=== PATIENT | female | born 1975 | race Caucasian/White ===

== ENCOUNTER 2016-04-12 17:48 | Emergency (ER) | payer BC ==
[~2016-04-12] VITALS: Wt 110.0 kg
[~2016-04-12 17:48] MED LIST: CEPH-443 PO; CLOT30CR24 TOP; FLUC150T17 PO; FLUC150T41 PO; ULT50 PO
[2016-04-12] MEDS ORDERED: LIDOCAINE 1% (MDV) 20 ML INJ SC ONE (19:00)
[2016-04-12] MEDS ORDERED: DIPHTH/TET/ACEL PERTUSS (ADULT) 0.5 ML VIAL IM* ONE (19:00)
[2016-04-12 19:19] LABS: URINE BLOOD (Dip) POC Negative (NEGATIVE)
[2016-04-12] MEDS ORDERED: INSULIN LISPRO 100 UNIT/ML VIAL SC STA (19:25)
[2016-04-12] MEDS ORDERED: FLUC150T17 PO (19:42)
[2016-04-12] MEDS ORDERED: DOXY-220 PO (19:42)
[2016-04-12] MEDS ORDERED: IBUP-1542 PO (19:42)
--- NOTE | 2016-04-12 19:46 | ERD ---
ER Documentation Chief Complaint Date/Time DATE: 04/12/16 TIME: 19:43 Chief Complaint right index finger and vaginal itching for the past few days. HPI This 40-year-old female presents with multiple complaints. She has a splinter in her right in the street from yesterday while gardening. She has some slight pain and redness. She denies any restricted range of motion weakness. Tetanus up-to-date. She also complains of some whitish discharge and itching in her vaginal area. She has a history of yeast infection as she has a history of diabetes and it feels the same as previous. She denies abdominal pain, fevers, vomiting. She does have some slight dysuria but she is uncertain whether it is from the irritation of the vaginal area ROS All systems reviewed and are negative except as per history of present illness. Medications Home Meds Active Scripts Ibuprofen* (Ibuprofen*) 600 Mg Tablet, 600 MG PO Q6, #15 TAB Prov:BRIJESH MILTON MD 04/12/16 Doxycycline Monohydrate* (Doxycycline Monohydrate*) 100 Mg Tablet, 100 MG PO BID for 10 Days, TAB Prov:BRIJESH MILTON MD 04/12/16 Fluconazole* (Diflucan*) 150 Mg Tablet, 150 MG PO ONCE, #1 TAB Prov:BRIJESH MILTON MD 04/12/16 Fluconazole* (Fluconazole*) 150 Mg Tablet, 150 MG PO ONCE, #1 TAB Prov:MARIANA MCPHERSON PA-C 12/30/14 Tramadol HCl (Tramadol HCl) 50 Mg Tab, 50 MG PO Q4 Y for PAIN, #20 TAB Prov:MARIANA MCPHERSON PA-C 12/30/14 Clotrimazole* (Clotrimazole* AF) 1% - 30 Gm Cream.gm., 1 APPLIC TOP BID for 7 Days, TUB apply to belly button only Prov:MARIANA MCPHERSON PA-C 11/04/14 Cephalexin* (Keflex*) 500 Mg Capsule, 500 MG PO QID for 7 Days, CAP Prov:MARIANA MCPHERSON PA-C 11/04/14 Fluconazole* (Diflucan*) 150 Mg Tablet, 150 MG PO ONCE, #1 TAB Prov:MARIANA MCPHERSON PA-C 11/04/14 Allergies Allergies: Coded Allergies: No Known Allergy (Unverified , 04/24/13) PMhx/Soc History of Surgery: Yes (tonsilectomy) Anesthesia Reaction: No Hx Neurological Disorder: No Hx Respiratory Disorders: No Hx Cardiac Disorders: No Hx Psychiatric Problems: No Hx Miscellaneous Medical Probl: Yes (DM. TYPE 2- noncompliant) Hx Alcohol Use: No Hx Substance Use: No Hx Tobacco Use: Yes Smoking Status: Current some day smoker Physical Exam Vitals Vital Signs Date Time Temp Pulse Resp B/P Pulse Ox O2 Delivery O2 Flow Rate FiO2 04/12/16 17:53 97.9 102 20 162/75 99 Physical Exam Const: [] Head: Atraumatic Eyes: Normal Conjunctiva ENT: Normal External Ears, Nose and Mouth. Neck: Full range of motion..~ No meningismus. Resp: Clear to auscultation bilaterally Cardio: Regular rate and rhythm, no murmurs Abd: Soft, non tender, non distended. Normal bowel sounds Skin: No petechiae or rashes. The right index finger shows a small black foreign body over the index finger PIP joint. Some slight surrounding redness but no proximal tendon tenderness, streaking, induration, fluctuance, discharge Back: No midline or flank tenderness Ext: No cyanosis, or edema Neur: Awake and alert Psych: Normal Mood and Affect Results 24 hrs Laboratory Tests Test 04/12/16 19:18 04/12/16 19:24 Bedside Urine Blood Negative Bedside Urine Glucose (UA) 0.50% Bedside Urine Ketones (LAB) Negative Bedside Urine Leukocyte Esterase (L Negative Bedside Urine Nitrite (LAB) Negative Bedside Urine Protein (LAB) Negative Bedside Urine pH (LAB) 5.0 Bedside Glucose 353mg/dL Current Medications Medications (Trade) Dose Ordered Sig/Hayder Route PRN Reason Start Time Stop Time Status Last Admin Dose Admin Lidocaine (Xylocaine 1% (Mdv) 20 ml) 20 ml ONCE ONCE SC 04/12/16 19:00 04/12/16 19:01 DC Diphtheria/ Tetanus/Acell Pertussis (Adacel) 0.5 ml ONCE ONCE IM* 04/12/16 19:00 04/12/16 19:01 DC 04/12/16 18:46 Insulin Human Lispro (Humalog) 8 unit ONCE STAT SC 04/12/16 19:25 04/12/16 19:26 DC 04/12/16 19:33 Procedures/MDM Urine is positive for glucose negative for glucose, nitrites, leukocytes. Right index finger was cleansed with alcohol. 1 cc of lidocaine was used for local infiltration. A small splinter was removed. The wound was dressed. Patient was discharged home with a prescription of doxycycline, Diflucan, ibuprofen and instructions to follow-up with primary doctor this week. Patient blood sugar was 360 and she is administered 8 units of subcutaneous Humalog. Patient states that her blood been high in the 300s over the last month due to the holidays. Patient shows no signs or symptoms to suggest ketoacidosis, sepsis, additional complications of her presenting complaints. Patient should follow-up with primary care doctor this week or return to ER for new or worsening symptoms. Patient was given a Tdap tetanus booster. Departure Diagnosis: Primary Impression: Yeast infection Additional Impressions: Hyperglycemia Splinter in skin Condition: Stable Patient Instructions: Hyperglycemia (High Blood Sugar), Vaginal Infection: Yeast (Candidiasis), Splinter Removal Additional Instructions: Recheck for worsening redness, fevers, new or worsening symptoms. BRIJESH MILTON MD Apr 12, 2016 19:46
== END 2016-04-12 19:51 | disposition home or self-care (01) ==
LOC: FTE 17:48
DX: B37.9 Candidiasis, unspecified (principal); E11.65 Type 2 diabetes mellitus with hyperglycemia; F17.210 Nicotine dependence, cigarettes, uncomplicated; W45.8XXA Other foreign body or object entering through skin, initial encounter; Y92.410 Unspecified street and highway as the place of occurrence of the external cause; Z23 Encounter for immunization
CPT/HCPCS: 81003; 82962; 90471; 90715; 96372; 99284; J1815; Z7610